=== PATIENT | male | born 1970 | race African-American/Black ===

== ENCOUNTER 2017-02-13 21:26 | Emergency (ER) | payer BC ==
[2017-02-13] MEDS ORDERED: IBUPROFEN 600 MG TABLET PO ONE (23:43)
[2017-02-13] MEDS ORDERED: PENICILLIN V POTASSIUM 500 MG TABLET PO ONE (23:43)
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
[2017-02-14 00:57] VITALS: BP 165/84
== END 2017-02-14 01:02 | disposition home or self-care (01) ==
LOC: ER 21:26
DX: K08.89 Other specified disorders of teeth and supporting structures (principal); R22.0 Localized swelling, mass and lump, head; F17.200 Nicotine dependence, unspecified, uncomplicated; I10 Essential (primary) hypertension
CPT/HCPCS: 99282

== ENCOUNTER 2019-01-13 09:54 | Emergency (ER) | payer SELFPAY ==
[2019-01-13] MEDS ORDERED: PREDNISONE 20 MG TABLET PO ONE (11:25)
[2019-01-13] MEDS ORDERED: CEPHALEXIN 500 MG CAPSULE PO ONE (11:25)
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
[2019-01-13] MEDS ORDERED: LISINOPRIL 10 MG TABLET PO ONE (11:45)
[2019-01-13 12:12] VITALS: BP 196/128
== END 2019-01-13 12:13 | disposition home or self-care (01) ==
LOC: ER 09:54
DX: L01.00 Impetigo, unspecified (principal); L25.9 Unspecified contact dermatitis, unspecified cause; R21 Rash and other nonspecific skin eruption; R51 Headache; R22.0 Localized swelling, mass and lump, head; F17.200 Nicotine dependence, unspecified, uncomplicated; I10 Essential (primary) hypertension
CPT/HCPCS: 99283; J7512

== ENCOUNTER 2020-01-03 05:47 | Emergency (ER) | payer BC, OTHER ==
[2020-01-03] MEDS ORDERED: CEFTRIAXONE INJ 1000 MG VIAL IM ONE (07:04)
[2020-01-03] MEDS ORDERED: KETOROLAC TROMETHAMINE 60 MG/2 ML SDV IM ONE (07:05)
[2020-01-03] MEDS ORDERED: LIDOCAINE 1% INJ-PF (10 MG/ML) 30 ML SDV ONE (07:31)
[2020-01-03] MEDS ORDERED: LIDOCAINE 1% INJ-PF (10 MG/ML) 30 ML SDV IM ONE (07:41)
[2020-01-03] MEDS ORDERED: CLONIDINE HCL 0.2 MG TABLET PO ONE (07:58)
[2020-01-03 09:34] VITALS: BP 166/106
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
== END 2020-01-03 10:05 | disposition home or self-care (01) ==
LOC: ER 05:47
DX: K04.7 Periapical abscess without sinus (principal); I10 Essential (primary) hypertension; F17.210 Nicotine dependence, cigarettes, uncomplicated
CPT/HCPCS: 99282; 96372; J1885; J3490; J0696

== ENCOUNTER 2020-04-12 22:31 | Emergency (ER) | payer OTHER ==
[2020-04-12] MEDS ORDERED: IBUPROFEN 800 MG TABLET PO ONE (23:37)
[2020-04-12] MEDS ORDERED: HYDROCODONE/ACETAMINOPHEN 5-325 MG (6 TAB/ER DISP) PO PRN (23:37)
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
[2020-04-12] MEDS ORDERED: LIDOCAINE 2% INJ (20 MG/ML) 20 ML MDV INJ ONE (23:49)
[2020-04-12] MEDS ORDERED: BUPIVACAINE HCL 0.5 % INJ/PF 30 ML SDV INJ ONE (23:49)
[2020-04-13] MEDS ORDERED: PENICILLIN V POTASSIUM 500 MG TABLET PO ONE (00:28)
[2020-04-13 02:24] VITALS: BP 170/82
== END 2020-04-13 00:39 | disposition home or self-care (01) ==
LOC: ER 22:31
DX: K04.7 Periapical abscess without sinus (principal)
CPT/HCPCS: 41800; 99284; J3490 ×2